=== PATIENT | female | born 1995 | race Caucasian/White ===

== ENCOUNTER → 2017-08-10 | Outpatient (CLI) | payer BC ==
--- NOTE | 2017-08-10 13:42 | RADIOLOGY IMAGING REPORT ---
FACILITY: [facility] - [place] PATIENT NAME: Nolberto Almaguer : 1995 MR: [id number] V: [id number] EXAM DATE: ORDERING PHYSICIAN: JANET CARTER TECHNOLOGIST: Location: [facility] Patient: Nolberto Almaguer : 1995 Visit/Account:[id number] Date of Sevice: 08/10/2017 EXAMINATION: Unilateral lower extremity deep vein duplex Doppler ultrasound HISTORY: Left calf pain for 2 weeks status post left knee scope and ACL reconstruction. COMPARISON: None. FINDINGS: Grayscale compression, duplex and color Doppler interrogation of the left lower extremity deep veins from common femoral vein to proximal calf was performed. The greater saphenous vein in the ipsilatera l proximal thigh was evaluated using similar technique. Left lower extremity: Common femoral vein: Negative. Femoral vein: Negative. Deep femoral vein: Negative. Popliteal vein: Negative. Visualized deep calf veins: Negative. Greater saphenous vein in the proximal thigh: Negative. Popliteal fossa: Negative. Waveforms: Normal respiratory phasicity. IMPRESSION: No evidence of deep venous thrombosis of the left lower extremity. Report Dictated By: Jorge Renteria MD at 08/10/2017 1:35 PM Report E-Signed By: Jorge Renteria MD at 08/10/2017 1:37 PM WSN:[id number]
== END ==
LOC: US 12:28
PROVIDERS: ATTEND Orthopaedic Surgery
DX: M79.662 Pain in left lower leg (principal); Z98.890 Other specified postprocedural states

== ENCOUNTER 2017-09-24 18:36 | Emergency (ER) | payer BC ==
[2017-09-24] MEDS ORDERED: ALBUTEROL/IPRATROPIUM 3 ML NEB ONE (18:46)
[2017-09-24] MEDS ORDERED: CITA-145 PO (18:47)
[2017-09-24] MEDS ORDERED: ALBUTEROL/IPRATROPIUM 3 ML NEB NEB ONE (18:55)
--- NOTE | 2017-09-24 18:58 | ER Report ---
History and Physical Time Seen By MD: 18:57 Hx. of Stated Complaint: PT WITH HX OF ASTHMA IS HAVING TROUBLE BREATHING. HPI/ROS CHIEF COMPLAINT: Shortness breath, asthma attack HISTORY OF PRESENT ILLNESS: Patient is a 21-year-old female with a history of asthma who started approximately 30 minutes ago with shortness breath, wheezing , increased respiratory effort. Patient takes albuterol inhaler for her treatment at home. Patient is maintaining oxygen saturations at 97% on room air with shortness breath. Patient reports having intermittent cough, subjective fevers, nausea but denies abdominal pain, dysuria, cyanosis. REVIEW OF SYSTEMS: Constitutional: + subjective fever, no chills. Eyes: No discharge. ENT: No sore throat. Cardiovascular: No chest pain, no palpitations. Respiratory: + cough, + shortness of breath, + increased respiratory effort. Gastrointestinal: No abdominal pain, no vomiting. Genitourinary: No hematuria. Musculoskeletal: No back pain. Skin: No rashes. Neurological: No headache. Allergies: Coded Allergies: No Known Drug Allergies (Unverified , 09/24/17) Home Meds Active Scripts Azithromycin (ZITHROMAX) 250 Mg Tablet, 1 TAB PO QDAY for 4 Days, #4 TAB Prov:ANUPAMA ENGLISH DO 09/24/17 Reported Medications Citalopram Hydrobromide (CITALOPRAM HBR) 20 Mg Tablet, 20 MG PO QDAY, #5 TAB 09/24/17 Discontinued Scripts Azithromycin 250 Mg Tab (AZITHROMYCIN 250 MG TAB) 250 Mg Tablet, 0 PO QDAY, #6 TAB Prov:ANUPAMA ENGLISH DO 09/24/17 Constitutional Vital Sign - Last 24 Hours 09/24/17 09/24/17 09/24/17 09/24/17 18:40 18:40 18:42 18:43 Temp 97.7 Pulse 101 99 Resp 24 30 B/P (MAP) 133/113 (120) 133/113 Pulse Ox 94 94 O2 Delivery Room Air Room Air 09/24/17 09/24/17 09/24/17 09/24/17 18:49 18:51 19:00 19:06 Pulse 114 100 108 Resp 24 51 31 B/P (MAP) 115/60 (78) Pulse Ox 96 98 09/24/17 09/24/17 09/24/17 09/24/17 19:21 19:28 19:30 19:36 Pulse 98 99 100 Resp 36 22 18 B/P (MAP) 102/63 (76) Pulse Ox 97 99 09/24/17 09/24/17 09/24/17 09/24/17 19:44 19:51 20:00 20:06 Pulse 98 103 95 Resp 22 15 18 B/P (MAP) 97/53 (68) Pulse Ox 94 95 09/24/17 09/24/17 20:21 20:30 Pulse 98 Resp 18 B/P (MAP) 112/62 (79) Pulse Ox 94 Intake and Output 09/24/17 09/24/17 09/25/17 15:00 23:00 07:00 Intake Total 50 ml Balance 50 ml Physical Exam General Appearance: The patient is alert, has no immediate need for airway protection and no signs of toxicity. + Mild respiratory distress Eyes: Pupils equal and round no pallor or injection. ENT, Mouth: Mucous membranes are moist. Respiratory: + diffuse wheezing, + increased respiratory effort Cardiovascular: Regular rate and rhythm. Gastrointestinal: Abdomen is soft and non tender, no masses, bowel sounds normal. Neurological: No focal neuro deficits Skin: Warm and dry, no rashes. Musculoskeletal: Neck is supple non tender. Extremities are nontender, nonswollen and have full range of motion. DIFFERENTIAL DIAGNOSIS: After history and physical exam differential diagnosis was considered for shortness of breath including but not limited to pulmonary infectious process, COPD, asthma, pulmonary embolus and congestive heart failure. Medical Decision Making Data Points Result Diagram: 09/24/178 09/24/178 Laboratory Hematology Test 09/24/17 18:58 Red Blood Count 4.96 M/uL (4.17-5.56) Mean Corpuscular Volume 88.8 fL (80.0-96.0) Mean Corpuscular Hemoglobin 31.4 pg (26.0-33.0) Mean Corpuscular Hemoglobin Concent 35.4 g/dL (32.0-36.0) Red Cell Distribution Width 12.3 % (11.5-14.5) Mean Platelet Volume 7.3 fL (7.2-11.1) Neutrophils (%) (Auto) 55.4 % (39.4-72.5) Lymphocytes (%) (Auto) 32.2 % (17.6-49.6) Monocytes (%) (Auto) 7.9 % (4.1-12.4) Eosinophils (%) (Auto) 4.0 % (0.4-6.7) Basophils (%) (Auto) 0.5 % (0.3-1.4) Nucleated RBC Relative Count (auto) 0.1 /100WBC Neutrophils # (Auto) 4.7 K/uL (2.0-7.4) Lymphocytes # (Auto) 2.7 K/uL (1.3-3.6) Monocytes # (Auto) 0.7 K/uL (0.3-1.0) Eosinophils # (Auto) 0.3 K/uL (0.0-0.5) Basophils # (Auto) 0.0 K/uL (0.0-0.1) Nucleated RBC Absolute Count (auto) 0.01 K/uL Sodium Level 140 mmol/L (137-145) Potassium Level 3.3 mmol/L (3.5-5.0) Chloride Level 102 mmol/L (98-107) Carbon Dioxide Level 25 mmol/L (22-31) Blood Urea Nitrogen 9 mg/dl (7-18) Creatinine 0.60 mg/dl (0.52-1.04) Glomerular Filtration Rate Calc > 60.0 Random Glucose 110 mg/dl (75-110) Calcium Level 9.1 mg/dl (8.4-10.2) Total Bilirubin 0.6 mg/dl (0.2-1.3) Aspartate Amino Transf (AST/SGOT) 19 U/L (0-35) Alanine Aminotransferase (ALT/SGPT) 19 U/L (0-56) Alkaline Phosphatase 47 U/L (0-126) Total Protein 7.1 g/dl (6.3-8.2) Albumin 4.4 g/dl (3.5-5.0) Chemistry Test 09/24/17 18:58 White Blood Count 8.4 k/uL (4.5-11.0) Red Blood Count 4.96 M/uL (4.17-5.56) Hemoglobin 15.6 g/dL (12.0-16.0) Hematocrit 44.0 % (34.0-47.0) Mean Corpuscular Volume 88.8 fL (80.0-96.0) Mean Corpuscular Hemoglobin 31.4 pg (26.0-33.0) Mean Corpuscular Hemoglobin Concent 35.4 g/dL (32.0-36.0) Red Cell Distribution Width 12.3 % (11.5-14.5) Platelet Count 253 K/uL (150-450) Mean Platelet Volume 7.3 fL (7.2-11.1) Neutrophils (%) (Auto) 55.4 % (39.4-72.5) Lymphocytes (%) (Auto) 32.2 % (17.6-49.6) Monocytes (%) (Auto) 7.9 % (4.1-12.4) Eosinophils (%) (Auto) 4.0 % (0.4-6.7) Basophils (%) (Auto) 0.5 % (0.3-1.4) Nucleated RBC Relative Count (auto) 0.1 /100WBC Neutrophils # (Auto) 4.7 K/uL (2.0-7.4) Lymphocytes # (Auto) 2.7 K/uL (1.3-3.6) Monocytes # (Auto) 0.7 K/uL (0.3-1.0) Eosinophils # (Auto) 0.3 K/uL (0.0-0.5) Basophils # (Auto) 0.0 K/uL (0.0-0.1) Nucleated RBC Absolute Count (auto) 0.01 K/uL Glomerular Filtration Rate Calc > 60.0 Calcium Level 9.1 mg/dl (8.4-10.2) Total Bilirubin 0.6 mg/dl (0.2-1.3) Aspartate Amino Transf (AST/SGOT) 19 U/L (0-35) Alanine Aminotransferase (ALT/SGPT) 19 U/L (0-56) Alkaline Phosphatase 47 U/L (0-126) Total Protein 7.1 g/dl (6.3-8.2) Albumin 4.4 g/dl (3.5-5.0) EKG/Imaging Imaging HISTORY: Cough and respiratory distress DATE: 09/24/2017 8:20 PM TECHNIQUE: CHEST PA AND LAT COMPARISON: none FINDINGS: The cardiomediastinal silhouette is of normal size and contour. No pleural effusion. No pneumothorax. No consolidation. The lungs are adequately expanded. IMPRESSION: Normal chest. ED Course/Re-evaluation ED Course Patient is a 21-year-old female here with complaints of respiratory distress in the setting of asthma. She reports that her symptoms acutely worsen this evening in spite of using her rescue inhaler. She was given 2 nebulizer treatments, Decadron and magnesium with significant relief of symptoms. X-ray imaging showed no consolidation. Patient was started on a Z-Naresh and advised to continue taking her rescue inhaler every 4-6 hours and to follow-up with her PCP. Patient was stable at time of discharge and in no acute distress. Decision to Disposition Date: Sep 24, 2017 Decision to Disposition Time: 21:00 Depart Departure Latest Vital Signs Vital Signs Date Time Temp Pulse Resp B/P (MAP) Pulse Ox O2 Delivery O2 Flow Rate FiO2 09/24/17 20:30 112/62 (79) 09/24/17 20:21 98 18 94 09/24/17 18:43 97.7 Room Air Impression: Primary Impression: Asthma attack Additional Impression: Bronchitis Condition: Improved Disposition: HOME OR SELF-CARE New Scripts Azithromycin (ZITHROMAX) 250 Mg Tablet 1 TAB PO QDAY for 4 Days, #4 TAB Prov: ANUPAMA ENGLISH DO 09/24/17 Patient Instructions: Acute Bronchitis (ED), Asthma (ED), Azithromycin (By mouth) Additional Instructions: Please take 1 tablet of azithromycin daily for four days until complete. Please follow up with your family doctor in one week. Please return with worsening shortness of breath, fevers, cough, nausea, vomiting. Please take 2 puffs of your inhaler every 4-6 hours as needed for wheezing and shortness of breath. Problem Qualifiers ANUPAMA ENGLISH DO Sep 24, 2017 18:58
[2017-09-24] MEDS ORDERED: MAGNESIUM SUL* 2 GM/50 ML IVPB 50 ML IVPB ONE (19:05)
[2017-09-24] MEDS ORDERED: DEXAMETHASONE SOD PHOS 10MG/ML IVP ONE (19:05)
[2017-09-24 19:16] LABS: PLATELET COUNT, AUTOMATED 253 K/uL (150-450)
[2017-09-24] MEDS: ALBUTEROL 2.5 MG/3 ML NEB NEB SCH (19:28)
[2017-09-24 20:30] VITALS: BP 112/62
--- NOTE | 2017-09-24 20:35 | RADIOLOGY IMAGING REPORT ---
FACILITY: [facility] - [place] PATIENT NAME: Nolberto Almaguer : 1995 MR: [id number] V: [id number] EXAM DATE: ORDERING PHYSICIAN: ANUPAMA ENGLISH TECHNOLOGIST: Location: [facility] Patient: Nolberto Almaguer : 1995 Visit/Account:[id number] Date of Sevice: 09/24/2017 HISTORY: Cough and respiratory distress DATE: 09/24/2017 8:20 PM TECHNIQUE: CHEST PA AND LAT COMPARISON: none FINDINGS: The cardiomediastinal silhouette is of normal size and contour. No pleural effusion. No pne umothorax. No consolidation. The lungs are adequately expanded. IMPRESSION: Normal chest. Report Dictated By: Gabe Jaramillo MD at 09/24/2017 8:31 PM Report E-Signed By: Gabe Jaramillo MD at 09/24/2017 8:32 PM WSN:[id number]
[2017-09-24] MEDS ORDERED: AZITHROMYCIN 250 MG TAB PO ONE (20:55)
[2017-09-24] MEDS ORDERED: AZIT-18 PO (20:55)
[2017-09-24] MEDS ORDERED: AZIT-1 PO (20:58)
== END 2017-09-24 21:05 | disposition home or self-care (01) ==
LOC: ER 18:57
DX: J45.909 Unspecified asthma, uncomplicated (principal)
CPT/HCPCS: 71046; 85025; 94640; 96365; 96375; 99284; J1100; J3475; J7613; J7620; Q0144; 82040; 82247; 82310; 82374; 82435; 82565; 82947; 84075; 84132; 84155; 84295; 84450; 84460; 84520

== ENCOUNTER → 2018-04-20 | Outpatient (CLI) | payer BC ==
[~2018-04-20] MED LIST: AZIT-1 PO; AZIT-18 PO; CITA-145 PO
--- NOTE | 2018-04-20 09:33 | EKG ---
[place] [facility] [place] NAME: CLEMENCIA JUAREZ : [id number] MR: [id number] V: [id number] EXAM DATE: ORDERING PHYSICIAN: BILL RODRIGUEZ TECHNOLOGIST: PILI Test Reason : SOB Blood Pressure : / mmHG Vent. Rate : 069 BPM Atrial Rate : 069 BPM P-R Int : 116 ms QRS Dur : 082 ms QT Int : 376 ms P-R-T Axes : 065 084 067 degrees QTc Int : 402 ms Normal sinus rhythm Normal ECG No previous ECGs available Confirmed by BRETT HUTRADO ([id number]) on 04/20/2018 10:45:35 AM Referred By: Bj RODRIGUEZ Confirmed By:BRETT HURTADO
== END ==
LOC: RESP 06:02
PROVIDERS: ATTEND Physician Assistant
DX: R06.02 Shortness of breath (principal)
CPT/HCPCS: 93005; 94010

== ENCOUNTER → 2018-04-20 | Outpatient (CLI) | payer BC ==
--- NOTE | 2018-04-20 12:34 | RADIOLOGY IMAGING REPORT ---
FACILITY: [facility] - [place] PATIENT NAME: Nolberto Almaguer : 1995 MR: [id number] V: [id number] EXAM DATE: ORDERING PHYSICIAN: BILL RODRIGUEZ TECHNOLOGIST: Location: [facility] [place] Patient: Nolberto Almaguer : 1995 Visit/Account:[id number] Date of Sevice: 04/20/2018 TRANSVAGINAL NON-OB HISTORY: IUD placement, pelvic pain x2 years TECHNIQUE: Transvaginal ultrasound pelvis. COMPARISON: None. FINDINGS: Uterus: ; 5.9 cm length x 2.8 cm AP x 3 cm transverse. Myometrium: Unremarkable. Endometrium: IUD is identified within the endometrial canal and appears to been good position; double thickness 3 mm. Cervix: There appears to be a moderate amount of fluid within the endocervical canal. Ovaries: Right - 2.1 x 1.4 x 2 cm Left - 2.6 x 1.1 x 3.4 cm Follicles are identified in both ovaries Blood flow is documented in each ovary by duplex Doppler ultrasound. Adnexa: Grossly unremarkable. Free pelvic fluid: None. IMPRESSION: IUD appears to be in good position within the endometrial canal There is a moderate amount of fluid within the endocervical canal Report Dictated By: Tracie Arango MD at 04/20/2018 12:27 PM Report E-Signed By: Tracie Arango MD at 04/20/2018 12:29 PM WSN:[id number]
== END ==
LOC: US 04:22
PROVIDERS: ATTEND Physician Assistant
DX: R10.2 Pelvic and perineal pain (principal); Z97.5 Presence of (intrauterine) contraceptive device
CPT/HCPCS: 76830

== ENCOUNTER → 2018-09-18 | Outpatient (CLI) | payer BC ==
--- NOTE | 2018-09-18 17:09 | RADIOLOGY IMAGING REPORT ---
[place] [facility] [place] Nolberto Almaguer : 1995 MR: [id number] V: [id number] EXAM DATE: ORDERING PHYSICIAN: SAM HERNADEZ TECHNOLOGIST: [facility] Patient: Nolberot Almaguer : 1995 Visit/Account:[id number] Date of Sevice: 09/18/2018 Venous Doppler ultrasound left lower extremity Indication: Left calf pain and swelling. Knee scope one week ago.. Comparison: 08/10/2017. Findings: Duplex Doppler and color flow imaging was performed. The common femoral, femoral, and popl iteal veins are all patent and compressible with normal Doppler wave forms. There are normal respons es to augmentation. The posterior tibial and peroneal veins are patent in the calf. The proximal greater saphenous vein is also normal. Subcutaneous tissues are unremarkable. IMPRESSION: 1. No evidence of deep venous thrombosis of the left lower extremity. Report Dictated By: Husam Peralta at 09/18/2018 4:58 PM Report E-Signed By: Husam Peralta at 09/18/2018 5:01 PM WSN:[id number]
== END ==
LOC: US 15:46
PROVIDERS: ATTEND Orthopaedic Surgery Pediatric Orthopaedic Surgery
DX: M79.662 Pain in left lower leg (principal); M79.89 Other specified soft tissue disorders